=== PATIENT | female | born 1965 | race Caucasian/White ===

== ENCOUNTER 2016-09-27 12:56 | Emergency (ER) | payer SELFPAY ==
[~2016-09-27] VITALS: Ht 157.5 cm; Wt 60.0 kg
[~2016-09-27 12:56] MED LIST: LORTAB 5 OR; PAROXETINE HCL20 MG PO; PRILOSEC40 MG PO; TIZANIDINE HCL4 M1 PO; XANAX0.5 MG PO; ZOHYDRO ER20 M1 PO
[2016-09-27 13:37] LABS: INFLUENZA A NONE DETECTED (NONE DETECT); INFLUENZA B NONE DETECTED (NONE DETECT)
[2016-09-27] MEDS ORDERED: MOTRIN800 MG PO (13:43)
[2016-09-27 13:51] VITALS: BP 186/92
== END 2016-09-27 13:54 | disposition home or self-care (01) | DRG 153 ==
LOC: ED 12:56
PROVIDERS: Emergency Medicine
DX: J06.9 Acute upper respiratory infection, unspecified (principal); R09.81 Nasal congestion; R05 Cough